=== PATIENT | female | born 1965 | race African-American/Black ===

== ENCOUNTER → 2016-06-30 17:05 | Outpatient (CLI) | payer MEDICARE ==
[~2016-06-30 17:05] MED LIST: APIDRA SOL100 UNIT/1; AZOR 5-40 MG TA1 TAB PO; FERROUS SULFAT325 MG PO; FORTAMET1000 MG/BO PO; GLUCOPHAGE1000 MG PO; LANTUS SOL100 UNIT/1 SQ; PRAVACHOL20 MG PO; PROVERA10 MG PO; STARLIX120 MG PO; SYNTHROID200 MC1 PO; SYNTHROID25 MCG PO; ZESTORETIC 10/11 TAB PO
== END | disposition home or self-care (01) ==
LOC: D.MAMMO 13:15
DX: Z12.31 Encounter for screening mammogram for malignant neoplasm of breast (principal)

== ENCOUNTER 2018-03-13 09:33 | Emergency (ER) | payer MEDICARE ==
[~2018-03-13] VITALS: Ht 165.1 cm; Wt 97.3 kg
[2018-03-13 09:34] VITALS: Ht 165.1 cm; Wt 97.3 kg
[2018-03-13] MEDS ORDERED: NORCO 7.5/325 T1 TA1 PO (10:02)
[2018-03-13 10:24] VITALS: BP 145/67
== END 2018-03-13 10:26 | disposition home or self-care (01) ==
LOC: D.ER 09:33
DX: S89.92XA Unspecified injury of left lower leg, initial encounter (principal); V79.9XXA Bus occupant (driver) (passenger) injured in unspecified traffic accident, initial encounter; Y93.89 Activity, other specified; Y92.410 Unspecified street and highway as the place of occurrence of the external cause; S19.9XXA Unspecified injury of neck, initial encounter; E11.9 Type 2 diabetes mellitus without complications; I10 Essential (primary) hypertension